=== PATIENT | male | born 1990 | race Caucasian/White ===

== ENCOUNTER 2017-01-06 01:34 | Emergency (ER) | payer SELFPAY ==
[~2017-01-06] VITALS: Ht 182.9 cm; Wt 129.0 kg
[2017-01-06 01:46] VITALS: Ht 182.9 cm; Wt 129.0 kg
[2017-01-06] MEDS ORDERED: IBUP-1542 PO (05:46)
[2017-01-06 06:10] VITALS: BP 126/72; PULSE 63; RESP 20; TEMP 98.2
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
== END 2017-01-06 06:11 | disposition home or self-care (01) ==
LOC: FTE 01:34
DX: S49.92XA Unspecified injury of left shoulder and upper arm, initial encounter (principal); S69.91XA Unspecified injury of right wrist, hand and finger(s), initial encounter; S89.91XA Unspecified injury of right lower leg, initial encounter; S19.9XXA Unspecified injury of neck, initial encounter; S29.9XXA Unspecified injury of thorax, initial encounter; F17.210 Nicotine dependence, cigarettes, uncomplicated; V49.49XA Driver injured in collision with other motor vehicles in traffic accident, initial encounter
CPT/HCPCS: 99283